=== PATIENT | female | born 1975 | race Caucasian/White ===

== ENCOUNTER 2023-04-07 15:30 | Emergency (ER) | payer MEDICAID ==
[2023-04-07] MEDS ORDERED: Lidocaine/Epineph/Tetracaine 3 ML Syringe TOP ONE (15:38)
== END 2023-04-07 16:58 | disposition home or self-care (01) ==
LOC: FB.ED 15:30
DX: S31.502A Unspecified open wound of unspecified external genital organs, female, initial encounter (principal); Z91.010 Allergy to peanuts; Z91.012 Allergy to eggs; Z88.0 Allergy status to penicillin; W45.8XXA Other foreign body or object entering through skin, initial encounter; Y93.E1 Activity, personal bathing and showering
CPT/HCPCS: 99283; A9270-GY

== ENCOUNTER 2024-02-25 10:02 | Emergency (ER) | payer MEDICAID ==
[2024-02-25 11:25] LABS: INFLUENZA A NAA POSITIVE (NEGATIVE); INFLUENZA B NAA NEGATIVE (NEGATIVE); RESPIRATORY SYNCYTIAL VIR NAA NEGATIVE (NEGATIVE)
[2024-02-25 11:28] LABS: HEMATOCRIT 46.8 % (34.2-48.2); HEMOGLOBIN 15.9 g/dL (11.4-15.5); MEAN CORPUSCULAR HEMOGLOBIN 30.3 pg (23.9-33.9); MEAN CORPUSCULAR HGB CONC 34.1 g/dL (31.9-34.8); MEAN CORPUSCULAR VOLUME 89.1 fL (76.7-100.5); MEAN PLATELET VOLUME 9.7 fL (7.1-12.4); PLATELET COUNT,PLT 228 x10(3)uL (151-488); RED BLOOD CELL COUNT 5.25 x10(6)uL (3.60-5.20); RED CELL DISTRIBUTION WIDTH 13.1 % (12.3-16.5); WHITE BLOOD CELL COUNT,WBC 16.7 x10-3/uL (3.0-10.3)
[2024-02-25 11:31] LABS: BLOOD UREA NITROGEN,BUN 12 mg/dL (7-18); CALCIUM 8.9 mg/dL (8.6-10.2); CARBON DIOXIDE,CO2 27 mmol/L (21-32); CHLORIDE,CL 105 mmol/L (100-110); CREATININE 0.8 mg/dL (0.55-1.02); ESTIMATED GFR 90 mL/min (>60); GLUCOSE RANDOM 89 mg/dL (80-116); POTASSIUM,K 3.9 mmol/L (3.5-5.3); SODIUM,NA 142 mmol/L (135-145)
[2024-02-25 11:37] LABS: A/G RATIO 1.2; ALANINE AMINOTRANSFERASE,ALT 65 U/L (12-36); ALBUMIN 3.8 g/dL (3.5-5.2); ALKALINE PHOSPHATASE 99 IU/L (56-112); ASPARTATE AMNIOTRANSFERASE,AST 20 IU/L (5-25); BILIRUBIN TOTAL 0.6 mg/dL (0.1-1.3)
[2024-02-25] MEDS: Albuterol/Ipratropium 3.0-0.5 MG/3 ML Neb Soln NEB ONE (11:39)
[2024-02-25 11:46] LABS: CORONAVIRUS COVID-19 NAA NEGATIVE (NEGATIVE)
[2024-02-25 11:57] LABS: BAND PERCENT MAN 2 % (0-6); LYMPHOCYTES PERCENT MAN 10 % (13-37); MONOCYTES PERCENT MAN 8 % (4-12); SEG NEUTROPHILS PERCENT MAN 80 % (46-82)
[2024-02-25] MEDS: Diltiazem 25 MG/5 ML SDV IVPUSH ONE ×4 (12:16→16:40)
[2024-02-25] MEDS ORDERED: Diltiazem 25 MG/5 ML SDV IVPUSH ONE (12:52)
[2024-02-25] MEDS: Benzonatate 100 MG Cap PO ONE (13:11)
[2024-02-25] MEDS: Oseltamivir 75 MG Cap PO ONE (13:11)
[2024-02-25] MEDS: Acetaminophen 325 MG Tab PO ONE (13:11)
[2024-02-25] MEDS ORDERED: Lactated Ringers 1,000 ML IV ONE (14:56)
[2024-02-25] MEDS ORDERED: diphenhydrAMINE 25 MG Cap PO ONE (14:57)
[2024-02-25] MEDS: Lactated Ringers 1,000 ML IV SCH (15:16)
[2024-02-25] MEDS: LORazepam 1 MG Tab PO ONE (15:16)
== END 2024-02-25 18:08 | disposition left against medical advice (07) ==
LOC: FB.ED 10:02
DX: I48.91 Unspecified atrial fibrillation (principal); J11.1 Influenza due to unidentified influenza virus with other respiratory manifestations; I10 Essential (primary) hypertension; J45.909 Unspecified asthma, uncomplicated; F17.210 Nicotine dependence, cigarettes, uncomplicated; Z91.012 Allergy to eggs; Z91.010 Allergy to peanuts; Z88.0 Allergy status to penicillin; Z79.899 Other long term (current) drug therapy
CPT/HCPCS: 0241U; 36415; 71046; 80053; 84484; 85025; 93005; 96361; 96374; 96376; 99285; A9270; J3490; J7120; 93010; 99284; J7620